=== PATIENT | female | born 1950 | race Caucasian/White ===

== ENCOUNTER 2016-08-09 17:54 | Emergency (ER) | payer BC ==
[2016-08-09] MEDS ORDERED: NORMAL SALINE 1,000 ML IV ONE (18:22)
[2016-08-09 18:28] LABS: White Blood Count 6.6 K/mm3 (4.0-10.5)
[2016-08-09 18:29] LABS: Hematocrit 42.9 % (37.0-47.0); Hemoglobin 13.7 gm/dL (12.5-16.0); Mean Cell Volume 84.6 fl (78-100); Mean Corpuscular Hgb Conc 31.9 g/dl (32-36); Mean Platelet Volume 9.5 fl (6.0-9.5); Platelet Count 201 K/mm3 (150-450); Red Blood Count 5.07 M/mm3 (4.2-5.4); Red Cell Distribution Width 13.2 % (11.5-14.0)
--- NOTE | 2016-08-09 18:31 | ERNOTE ---
Medical Problem HPI - Narrative Date of Service: 08/09/16 - General Chief Complaint: Nausea/Vomiting Time Seen by Provider: 08/09/16 18:08 Source: patient Exam Limitations: no limitations - Immun/Allergies/Home Medications Immunizations: IMMUNIZATION HX History of Influenza Vaccine No Hx Pneumococcal Vaccination No Allergies/Adverse Reactions: Allergies No Known Allergies Allergy (Verified 08/09/16 18:02) Home Medications: HOME MEDICATIONS metFORMIN HCL [Glucophage] 1,000 mg PO BIDWM 12/12/14 [Last Taken Unknown] Ciprofloxacin HCl [Cipro] 500 mg PO BID #20 tab 08/09/16 [Last Taken Unknown] Ondansetron [Zofran Odt] 4 mg PO Q6H PRN #20 tab 08/09/16 [Last Taken Unknown] - History of Present History Narrative: Pt. comes in with c/o nausea and vomiting for five days. Pt. states that just prior to onset of nausea and vomiting she had two days of cough, chest congestion, rhinorrhea, and diarrhea. Pt. states that she intermittently feels flush and chills but denies taking her temperature to check for fever. Pt. states that any time in the past three days that she has attempted to drink anything it has come back up. Pt. denies any SOB or CP. Review of Systems - Review of Systems Constitutional: Present: chills, fatigue, malaise. Absent: recent illness EYE: Present: no symptoms reported ENT: Present: nasal drainage. Absent: nose pain, nose congestion, sore throat Respiratory: Present: cough. Absent: shortness of breath, wheezing Cardiology: Present: no symptoms reported. Absent: chest pain, palpitations, edema Gastrointestinal/Abdominal: Present: nausea, vomiting, diarrhea, eating less, drinking less. Absent: constipation, abdominal pain Genitourinary: Present: no symptoms reported. Absent: frequency, decreased urinary output Musculoskeletal: Present: no symptoms reported. Absent: back pain, joint pain Skin: Present: no symptoms reported. Absent: rash, change in color Neurological: Present: no symptoms reported. Absent: headache, dizziness/light- headedness, numbness, tingling All Other Systems: All systems neg except as marked - Patient's Past Medical History Patient History - Medical: Diabetes Type 2 Patient History - Cardiac/Respiratory: No pertinent hx Patient History - Cancer: No Hx of Cancer Patient History - Surgical Procedures: Amputation, Appendectomy, Tubal Ligation , Other Patient History - Other: None - Family History Father Family History - Medical: Diabetes Type 2 - Social History Living Situations: home Abuse History: No History of abuse Psych History: No pertinent hx Alcohol Use: rarely Drug Use: none - Immunizations Hx Pneumococcal Vaccination: No History of Influenza Vaccine: No Physical Exam - Physical Exam General Appearance: Present: wd/wn, alert, no apparent distress Eye Exam: Normal inspection: bilateral, PERRL: bilateral, EOMI: bilateral Ears, Nose, Throat: Present: nasal congestion, pharyngeal erythema. Absent: normal ENT inspection, hearing grossly normal, normal pharynx Neck: Present: normal inspection, nontender. Absent: lymphadenopathy (R), lymphadenopathy (L) Respiratory: Present: no respiratory distress, normal breath sounds, no accessory muscle use, chest nontender, lungs clear. 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 improved greatly and is keeping down water and states taht she feels like a new woman. First dose abx given here will start on Cipro at home for UTI and give zofran for gastroenteritis. - Results and Orders Patient's Lab Results:: I have reviewed the patient's lab results. - Vital Signs Patient's Vital Signs:: I have reviewed the patient's vital signs. Vital Signs: Vital Signs 08/09/16 17:57 Temperature 36.7 C Pulse Rate 72 Respiratory 12 Rate Blood Pressure 145/84 O2 Sat by Pulse 99 Oximetry - X-Ray X-Ray #1 X-Ray: abdomen Interpretation: Reviewed by me X-ray Comments: nonspecific bowel gas pattern X-Ray #2 X-Ray: chest Interpretation: Reviewed by me X-ray Comments: improving RML infiltrate - Progress/Reassessment Chief Complaint: Nausea/Vomiting Progress:: Improved Departure - Departure Clinical Impression: Acute gastroenteritis UTI (urinary tract infection) Qualifiers: Urinary tract infection type: acute cystitis Hematuria presence: with hematuria Qualified Code(s): N30.01 - Acute cystitis with hematuria Disposition: Home self-care Condition: Good Instructions: Viral Gastroenteritis, Adult, [id number] Additional Instructions: Please follow up with primary provider in 2-3 days. Increase water intake. Referrals: Sherman Redd DO [Primary Care Provider] - Prescriptions: Ciprofloxacin HCl [Cipro] 500 mg PO BID #20 tab Ondansetron [Zofran Odt] 4 mg PO Q6H PRN #20 tab PRN Reason: Nausea
[2016-08-09 18:43] LABS: Albumin * 3.7 gm/dl (3.4-5.0); Anion Gap 12.3 mmol/L (6.8-13.8); BUN/Creatinine Ratio 22.2 (9.0-21.6); Bilirubin, Total 0.4 mg/dL (0.0-1.1); Ca. Corrected For Albumin 9.3 mg/dL (8.4-10.2); Calcium * 9.4 mg/dL (7.9-10.9); Carbon Dioxide 30.4 mmol/L (24-32.6); Potassium 3.7 mmol/L (3.4-4.6); Total Protein 7.4 gm/dL (6.2-8.2)
--- OUTSIDE RECORDS SUMMARY | 2016-08-09 18:43 | XMS REPORT | Continuity of Care Document ---
:1950 Author Organization [facility] ([facility]) Address [address] [place] [address] Phone [phone] Care Team Providers Name Role Phone Sherman Redd Primary Care Provider [phone] Source Comments This disclosure is being made pursuant to the Care Everywhere program, applicable federal and state laws, and may not contain all informaitonavailable regarding this patient.[facility] ([facility]) Active Allergies and Adverse Reactions No Known Allergies Current Medications Prescription Sig. Disp. Refills Start Date End Date Status METFORMIN 1,000 mg tablet 2 times daily. 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 Right Eye Left Eye Time To Recurrence: Time To Recurrence: Date VA (D cc) CMT Status Procedure VA (D cc) CMT Status Procedure Cmts 01/02/2016 20/20 cc Eylea [id number] 20/15-3 cc Eylea [id number] 02/13/2016 20/15-1 cc Eylea [id number] 20/15-2 cc Eylea [id number] 04/09/2016 20/20 +2 cc Eylea [id number] 20/20 +2 cc Eylea [id number] 06/18/2016 20/15 -1 cc Eylea [id number] 20/15 -1 cc Eylea [id number] IMO Import Utility Pseudophakia of both eyes 04/25/2015 Resolved Problems Problem Noted Date Resolved Date DME (diabetic macular edema) 04/25/2015 11/18/2015 Overview: Formatting of this note may be different from the original. Right Eye Left Eye Time To Recurrence: Time To Recurrence: Date VA (D cc) CMT Status Procedure VA (D cc) CMT Status Procedure Cmts 04/25/2015 20/150 cc Eylea [id number] 30 -2 cc Eylea [id number] 05/21/2015 20/20-1 cc Eylea [id number] 20/20-2 cc Eylea [id number] 06/18/2015 20/25 +2 cc Eylea [id number] 20/15 ! cc Eylea [id number] 08/01/2015 20/25-3 cc Eylea [id number] 20/15-1 cc Eylea [id number] 09/04/2015 20/25+3 cc Eylea [id number] 20/15-2 cc Eylea [id number] 11/18/2015 20/50+2 cc Eylea [id number] 20/15-1 cc 04/09/2016 20/20 +2 cc Eylea [id number] 20/20 +2 cc Eylea [id number] Most Recent Encounters Date Type Specialty Providers Description 06/18/2016 Office Visit Ophthalmology - Chief Comp: Patient Specialty Reported Reason For Visit 06/18/2016 Office Visit Ophthalmology - Default, Other Dx: Diabetic macular Specialty Billg - Defo edema of both eyes with Tere Cuba moderate MD nonproliferative retinopathy associated with type 2 diabetes mellitus (Primary Dx) Social History Tobacco Use Types Packs/Day Years Used Date Current Some Day Smoker Smokeless Tobacco: Never Used Tobacco Cessation:Ready to Quit: No; Counseling Given: No Comments: Alcohol Use Drinks/Week oz/Week Comments No Plan of Care Date Type Specialty Providers Description 09/06/2016 Appointment Ophthalmology - Remy Huynh MD Chief Comp: Patient Specialty [address] [place] [address] Visit [phone] (Fax) Health Maintenance Due Date Last Done Comments HCV Screening 1950 Hepatitis B Vaccine (1 of 3 - 1950 Primary Series) Tdap Vaccine 1962 DIABETIC: Cholesterol 1969 Diabetic: Hdl 1969 DIABETIC: Hemoglobin A1C 1969 Diabetic: Ldl 1969 DIABETIC: Microalbumin 1969 DIABETIC: Triglycerides 1969 Td Vaccine 1969 Cervical Cancer Screening 1981 Mammogram 1991 Colonoscopy 06/14/2001 Zoster Vaccine 2011 DIABETIC: Foot Exam 04/25/2015 Influenza Vaccine: Seasonal 01/26/2016 (#1) Osteoporosis Screening (DXA 2016 Bone Density) Pneumococcal Vaccine (1 of 2 2016 - PCV13) DIABETIC: Retinal Eye Exam 06/18/2017 06/18/2016, Additional history exists 04/09/2016, 02/13/2016 Results from Last 3 Months EYE PROC - INTRAVITREAL INJECTION (06/18/2016 2:45 PM) Narrative Tere Cuba MD 06/18/20162:45 PM [facility]re[facility] Injection Clinic Current Date: 06/18/2016 Subjective: Annette Aguayo is a 66 y.o. 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 History of Present Illness: Annette Aguayo is a 66 y.o. Female MD directed return to injection clinic.Both eyes Eylea Patient says her vision is about the same. 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 2 diabetes mellitus Overview Note: Right Eye Left Eye Time To Recurrence:Time To Recurrence: Date VA (D cc) CMT Status Procedure VA (D cc) CMT Status Procedure Cmts 01/02/2016 20/20 cc Eylea [id number] 20/15-3 cc Eylea [id number] 02/13/2016 20/15-1 cc Eylea [id number] 20/15-2 cc Eylea [id number] 04/09/2016 20/20 +2 cc Eylea [id number] 20/20 +2 cc Eylea [id number] IMO Import Utility Pseudophakia of both eyes Review of Systems: Negative except per HPI Objective: Base Eye Exam Visual Acuity (Snellen - Linear) Right Left Dist cc 20/15 -1 20/15 -1 Correction:Glasses Tonometry (Tonopen, 1:59 PM) Right Left Pressure 13 15 Neuro/Psych Oriented x3:Yes Mood/Affect:Normal Dilation Left eye:0.5% Mydriacyl, 2.5% Phenylephrine @ 1:59 PM Slit Lamp and Fundus Exam Fundus Exam Right Left Macula minimal thickening, few MA minimal thickening, few MA Oct Macula 06/18/2016 OD 295 (291) trace IRFOS 302 (305) trace IRF - no centerinvolving Assessment / Plan: 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 Resolved centerinvolving ME. Trace IRF oU Plan Today Eylea OU RTC [address] 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 I was present for the entire procedure. Tere Cuba MD, PhD Vitreoretinal Surgery Fellow Department of Ophthalmology OCT MACULA (06/18/2016 2:14 PM) Narrative OD 295 (291) trace IRF OS 302 (305) trace IRF - no centerinvolving
[2016-08-09 18:44] LABS: Total Cells Counted 100
[2016-08-09 18:55] LABS: Urine Bilirubin Negative (NEGATIVE); Urine Ketone 50 mg/dL (NEGATIVE); Urine Protein 15 mg/dL (NEGATIVE); Urine Specific Gravity >=1.030 SP.GR. (1.005-1.010); Urine Urobilinogen Normal (NORMAL); Urine pH 5.5 pH (5.0-7.0)
[2016-08-09] MEDS ORDERED: ONDANSETRON HCL/PF 2 MG/ML VIAL IV ONE (19:08)
[2016-08-09 19:09] LABS: Urine Appearance Cloudy; Urine Bacteria 4+; Urine Blood 10 /ul (NEGATIVE); Urine Color Yellow; Urine Nitrite Positive (NEGATIVE); Urine RBC 0-5 /hpf (0-5)
[2016-08-09 19:10] LABS: Urine Other Crystal Few - 1+ /hpf
[2016-08-09] MEDS ORDERED: ONDANSETRON HCL/PF 2 MG/ML VIAL ONE (19:12)
[2016-08-09 19:25] LABS: Atypical (Reactive) Lymph 2 % (0-2); Lymphocyte 48 % (20-51); Monocyte 5 % (0-9); Neutrophil 45 % (42-75)
[2016-08-09 19:28] LABS: Platelet Estimate Normal (NORMAL); RBC Morphology Normal (NORMAL)
[2016-08-09] MEDS ORDERED: CIPROFLOXACIN LACTATE/D5W 400 MG/200 ML BAG IV SCH (19:30)
[2016-08-09 21:29] VITALS: BP 195/89
== END 2016-08-09 21:25 | disposition home or self-care (01) ==
LOC: ER 17:54
DX: K52.9 Noninfective gastroenteritis and colitis, unspecified (principal); N30.01 Acute cystitis with hematuria; E11.9 Type 2 diabetes mellitus without complications